=== PATIENT | female | born 1965 | race Caucasian/White ===

== ENCOUNTER 2019-12-22 21:51 | Inpatient (IN) | payer OTHER, MEDICAID, SELFPAY ==
[~2019-12-22] VITALS: Ht 175.3 cm; Wt 83.9 kg
[2019-12-22 21:55] VITALS: BP_SYST 116
[2019-12-22 21:56] VITALS: BP_SYST 116
[2019-12-22] MEDS ORDERED: ONDANSETRON HCL 4 MG/2 ML VIAL IVP ONE (22:30)
[2019-12-22] MEDS ORDERED: MORPHINE 4 MG/ML INJ. SYRINGE IVP ONE (22:30)
[2019-12-22 23:56] LABS: BASOPHILS # (AUTO) 0.1 K/uL (0.0-0.2); EOSINOPHILS # (AUTO) 0.3 K/uL (0.0-0.4); EOSINOPHILS % (AUTO) 6.3 % (0.0-4.0); HEMATOCRIT 39.9 % (36-48); HEMOGLOBIN 13.2 g/dL (12.0-16.0); LYMPHOCYTES # (AUTO) 2.1 K/uL (1.0-5.5); LYMPHOCYTES % (AUTO) 39.3 % (20.5-51.5); MEAN CORPUSCULAR HEMOGLOBIN 29 pg (27-31); MEAN CORPUSCULAR HGB CONC 33 % (32-36); MEAN CORPUSCULAR VOLUME 87 fL (79.0-98.0); MONOCYTES # (AUTO) 0.5 K/uL (0.0-1.0); MONOCYTES % (AUTO) 10.1 % (1.7-9.3); NEUTROPHILS # (AUTO) 2.3 K/uL (1.8-7.7); NEUTROPHILS % (AUTO) 43.3 % (40.0-70.0); PLATELET COUNT (AUTO) 275 K/uL (130-430); RED BLOOD CELL COUNT(AUTO) 4.58 MIL/uL (4.2-6.2); RED CELL DISTRIBUTION WIDTH 13.3 % (9.0-15.0); WHITE BLOOD COUNT (AUTO) 5.4 K/uL (4.8-10.8)
[2019-12-23 00:09] LABS: CALCIUM 8.4 mg/dL (8.4-11.0); CREATININE 0.92 mg/dL (0.55-1.30)
[2019-12-23 00:15] LABS: ALBUMIN 3.5 g/dL (3.4-4.8); TOTAL BILIRUBIN 0.1 mg/dL (0.0-1.0)
[2019-12-23 00:33] LABS: INR 1.1 (0.8-1.2); PROTHROMBIN TIME 10.9 SECS (9.5-12.5)
[2019-12-23 00:59] LABS: BILIRUBIN,URINE NEGATIVE (NEGATIVE); BLOOD, URINE NEGATIVE (NEGATIVE); CLARITY/URINE CLEAR (CLEAR); COLOR,URINE YELLOW (YELLOW); GLUCOSE,URINE NEGATIVE (NEGATIVE); KETONES,URINE NEGATIVE (NEGATIVE); LEUKOCYTE ESTERASE ,URINE NEGATIVE (NEGATIVE); NITRITE, URINE NEGATIVE (NEGATIVE); PH,URINE 6.5 (5.0-8.0); PROTEIN URINE NEGATIVE (NEGATIVE); UROBILINOGEN,URINE 0.2 (0.2-1.0)
[2019-12-23] MEDS ORDERED: SENN8.6T19 PO (01:37)
[2019-12-23] MEDS ORDERED: POLY17PO4 PO (01:37)
[2019-12-23] MEDS ORDERED: ASCO500T20 PO (01:37)
[2019-12-23] MEDS ORDERED: ACET-2165 PO (01:37)
[2019-12-23] MEDS ORDERED: FAMO-132 PO (01:37)
[2019-12-23] MEDS ORDERED: DIPH25CA83 PO ×2 (01:37)
[2019-12-23] MEDS ORDERED: BISA10SU61 RC (01:37)
[2019-12-23] MEDS ORDERED: PRO20 PO (01:37)
[2019-12-23] MEDS ORDERED: METO-290 PO (01:37)
[2019-12-23] MEDS ORDERED: DIVA500T4 PO (01:37)
[2019-12-23] MEDS ORDERED: LACT10SO6 PO (01:37)
[2019-12-23] MEDS ORDERED: HYDR-4274 PO (01:37)
[2019-12-23] MEDS ORDERED: FLEETMO RC (01:37)
[2019-12-23] MEDS ORDERED: MOM PO (01:37)
[2019-12-23] MEDS ORDERED: LOVI40 SQ (01:37)
[2019-12-23] MEDS ORDERED: DOCU-144 PO (01:37)
[2019-12-23] MEDS ORDERED: ONDA4TAB5 PO (01:37)
[2019-12-23] MEDS ORDERED: SER100 PO (01:37)
[2019-12-23] MEDS ORDERED: MULT-1117 PO (01:37)
[2019-12-23] MEDS ORDERED: MELA3TAB64 PO (01:37)
[2019-12-23] MEDS ORDERED: CIPR-211 PO (01:37)
[2019-12-23 03:24] VITALS: BP_SYST 115
[2019-12-23] MEDS ORDERED: ONDANSETRON 4 MG ODT TAB PO PRN (04:00)
[2019-12-23] MEDS ORDERED: MINERAL OIL 133 ML ENEMA RC PRN (04:00)
[2019-12-23] MEDS ORDERED: MILK OF MAGNESIA 30 ML UDC PO PRN (04:00)
[2019-12-23] MEDS ORDERED: ACETAMINOPHEN 325 MG TABLET PO PRN (04:00)
[2019-12-23] MEDS ORDERED: MELATONIN 3 MG TABLET PO PRN (04:00)
[2019-12-23] MEDS ORDERED: DIPHENHYDRAMINE HCL 25 MG CAPSULE PO PRN (04:00)
[2019-12-23] MEDS ORDERED: METOCLOPRAMIDE HCL 10 MG TABLET PO PRN (04:00)
[2019-12-23] MEDS ORDERED: POLYETHYLENE GLYCOL 3350, 17 GM/ POWD.PACK PO PRN (04:00)
[2019-12-23] MEDS ORDERED: ACETAMINOPHEN 325 MG TABLET PO SCH (04:00)
[2019-12-23] MEDS ORDERED: LEVOFLOXACIN 500 MG/D5W 100 ML IV SCH (05:00)
[2019-12-23] MEDS: MORPHINE 2 MG/ML INJ. SYRINGE IVP PRN ×3 (06:54→20:09)
[2019-12-23] MEDS: ASCORBIC ACID 500 MG TABLET PO SCH ×2 (08:47→20:09)
[2019-12-23] MEDS: SENNOSIDES 8.6 MG TABLET PO SCH ×2 (08:47→20:09)
[2019-12-23] MEDS: FLUoxetine HCL 20 MG CAPSULE (PROzac) PO SCH (08:47)
[2019-12-23] MEDS: LACTULOSE 20 GM/30 ML UDC PO SCH ×2 (08:47→20:09)
[2019-12-23] MEDS: DOCUSATE SODIUM 100 MG CAPSULE PO SCH ×2 (08:47→20:08)
[2019-12-23] MEDS: DIVALPROEX SODIUM 500 MG TABLET( DEPAKOTE) PO SCH ×2 (08:47→20:08)
[2019-12-23] MEDS: MULTIVITAMINS TAB 1 TABLET PO SCH (08:47)
[2019-12-23] MEDS: FAMOTIDINE 20 MG TABLET PO SCH ×2 (08:47→20:09)
[2019-12-23] MEDS: BISACODYL 10 MG/SUPPOSITORY RC SCH (08:47)
[2019-12-23] MEDS: ENOXAPARIN SODIUM 40 MG/0.4 ML SYRINGE SQ SCH (09:00)
[2019-12-23] MEDS ORDERED: CIPROFLOXACIN HCL 500 MG TABLET PO SCH (10:00)
[2019-12-23 11:13] VITALS: BP_SYST 132
[2019-12-23 20:00] VITALS: BP_SYST 102
[2019-12-23] MEDS: QUEtiapine FUMARATE 100 MG TABLET PO SCH (20:09)
[2019-12-23] MEDS: DIPHENHYDRAMINE HCL 25 MG CAPSULE PO PRN (23:18)
[2019-12-24] VITALS: BP_SYST 118
[2019-12-24] MEDS: MORPHINE 2 MG/ML INJ. SYRINGE IVP PRN ×3 (07:35→18:47)
[2019-12-24 08:20] VITALS: BP_SYST 96
[2019-12-24] MEDS: BISACODYL 10 MG/SUPPOSITORY RC SCH (09:00)
[2019-12-24] MEDS: LACTULOSE 20 GM/30 ML UDC PO SCH ×2 (09:00→21:00)
[2019-12-24] MEDS: LEVOFLOXACIN 500 MG/D5W 100 ML IV SCH (09:48)
[2019-12-24] MEDS: ENOXAPARIN SODIUM 40 MG/0.4 ML SYRINGE SQ SCH (09:49)
[2019-12-24] MEDS: ASCORBIC ACID 500 MG TABLET PO SCH ×2 (09:50→21:45)
[2019-12-24] MEDS: MULTIVITAMINS TAB 1 TABLET PO SCH (09:51)
[2019-12-24] MEDS: FAMOTIDINE 20 MG TABLET PO SCH ×2 (09:51→21:44)
[2019-12-24] MEDS: FLUoxetine HCL 20 MG CAPSULE (PROzac) PO SCH (09:51)
[2019-12-24] MEDS: DIVALPROEX SODIUM 500 MG TABLET( DEPAKOTE) PO SCH ×2 (09:52→21:45)
[2019-12-24] MEDS: DOCUSATE SODIUM 100 MG CAPSULE PO SCH ×2 (09:58→21:00)
[2019-12-24] MEDS: SENNOSIDES 8.6 MG TABLET PO SCH ×2 (09:58→21:00)
[2019-12-24 12:20] VITALS: BP_SYST 123
[2019-12-24 16:20] VITALS: BP_SYST 136
[2019-12-24 20:45] VITALS: BP_SYST 105
[2019-12-24] MEDS: QUEtiapine FUMARATE 100 MG TABLET PO SCH (21:44)
[2019-12-25 00:15] VITALS: BP_SYST 114
[2019-12-25] MEDS: MORPHINE 2 MG/ML INJ. SYRINGE IVP PRN ×5 (02:51→23:21)
[2019-12-25 08:00] VITALS: BP_SYST 109
[2019-12-25] MEDS: LACTULOSE 20 GM/30 ML UDC PO SCH ×2 (09:00→21:00)
[2019-12-25] MEDS: SENNOSIDES 8.6 MG TABLET PO SCH ×2 (09:00→21:00)
[2019-12-25] MEDS: BISACODYL 10 MG/SUPPOSITORY RC SCH (09:00)
[2019-12-25] MEDS: LEVOFLOXACIN 500 MG/D5W 100 ML IV SCH (10:25)
[2019-12-25] MEDS: DOCUSATE SODIUM 100 MG CAPSULE PO SCH ×2 (10:25→21:33)
[2019-12-25] MEDS: DIVALPROEX SODIUM 500 MG TABLET( DEPAKOTE) PO SCH ×2 (10:25→21:00)
[2019-12-25] MEDS: MULTIVITAMINS TAB 1 TABLET PO SCH (10:26)
[2019-12-25] MEDS: FAMOTIDINE 20 MG TABLET PO SCH ×2 (10:26→21:33)
[2019-12-25] MEDS: FLUoxetine HCL 20 MG CAPSULE (PROzac) PO SCH (10:26)
[2019-12-25] MEDS: ASCORBIC ACID 500 MG TABLET PO SCH ×2 (10:26→21:34)
[2019-12-25] MEDS: ENOXAPARIN SODIUM 40 MG/0.4 ML SYRINGE SQ SCH (10:27)
[2019-12-25 12:00] VITALS: BP_SYST 102
[2019-12-25] MEDS: HYDROcodone/ACETAMIN 10-325 MG TAB PO PRN (17:11)
[2019-12-25 20:30] VITALS: BP_SYST 103
[2019-12-25] MEDS: QUEtiapine FUMARATE 100 MG TABLET PO SCH (21:34)
[2019-12-25] MEDS: DIPHENHYDRAMINE HCL 25 MG CAPSULE PO PRN (23:21)
[2019-12-25 23:30] VITALS: BP_SYST 109
[2019-12-26] MEDS: MORPHINE 2 MG/ML INJ. SYRINGE IVP PRN ×2 (06:54→11:55)
[2019-12-26 07:45] LABS: BASOPHILS # (AUTO) 0.1 K/uL (0.0-0.2); EOSINOPHILS # (AUTO) 0.5 K/uL (0.0-0.4); EOSINOPHILS % (AUTO) 9.3 % (0.0-4.0); HEMATOCRIT 40.3 % (36-48); HEMOGLOBIN 13.4 g/dL (12.0-16.0); LYMPHOCYTES # (AUTO) 2.3 K/uL (1.0-5.5); LYMPHOCYTES % (AUTO) 40.6 % (20.5-51.5); MEAN CORPUSCULAR HEMOGLOBIN 29 pg (27-31); MEAN CORPUSCULAR HGB CONC 33 % (32-36); MEAN CORPUSCULAR VOLUME 87 fL (79.0-98.0); MONOCYTES # (AUTO) 0.6 K/uL (0.0-1.0); MONOCYTES % (AUTO) 11.2 % (1.7-9.3); NEUTROPHILS # (AUTO) 2.1 K/uL (1.8-7.7); NEUTROPHILS % (AUTO) 37.9 % (40.0-70.0); PLATELET COUNT (AUTO) 300 K/uL (130-430); RED BLOOD CELL COUNT(AUTO) 4.65 MIL/uL (4.2-6.2); RED CELL DISTRIBUTION WIDTH 13.1 % (9.0-15.0); WHITE BLOOD COUNT (AUTO) 5.6 K/uL (4.8-10.8)
[2019-12-26 07:54] LABS: ALBUMIN 3.3 g/dL (3.4-4.8); CALCIUM 8.8 mg/dL (8.4-11.0); CREATININE 0.87 mg/dL (0.55-1.30); TOTAL BILIRUBIN 0.3 mg/dL (0.0-1.0)
[2019-12-26 08:00] VITALS: BP_SYST 102
[2019-12-26] MEDS: LACTULOSE 20 GM/30 ML UDC PO SCH ×2 (09:00→22:15)
[2019-12-26] MEDS: BISACODYL 10 MG/SUPPOSITORY RC SCH (09:00)
[2019-12-26] MEDS: SENNOSIDES 8.6 MG TABLET PO SCH ×2 (09:00→22:15)
[2019-12-26] MEDS: LEVOFLOXACIN 500 MG/D5W 100 ML IV SCH (09:28)
[2019-12-26] MEDS: FAMOTIDINE 20 MG TABLET PO SCH ×2 (09:29→22:15)
[2019-12-26] MEDS: DOCUSATE SODIUM 100 MG CAPSULE PO SCH ×2 (09:29→22:15)
[2019-12-26] MEDS: ASCORBIC ACID 500 MG TABLET PO SCH ×2 (09:29→22:15)
[2019-12-26] MEDS: MULTIVITAMINS TAB 1 TABLET PO SCH (09:29)
[2019-12-26] MEDS: DIVALPROEX SODIUM 500 MG TABLET( DEPAKOTE) PO SCH ×2 (09:29→22:15)
[2019-12-26] MEDS: FLUoxetine HCL 20 MG CAPSULE (PROzac) PO SCH (09:29)
[2019-12-26] MEDS: ENOXAPARIN SODIUM 40 MG/0.4 ML SYRINGE SQ SCH (09:37)
[2019-12-26 12:00] VITALS: BP_SYST 114
[2019-12-26] MEDS ORDERED: IOHEXOL 100 ML IV ONE (13:46)
[2019-12-26 16:30] VITALS: BP_SYST 110
[2019-12-26 19:33] VITALS: BP_SYST 127
[2019-12-26 20:00] VITALS: BP_SYST 127
[2019-12-26] MEDS: DIPHENHYDRAMINE HCL 25 MG CAPSULE PO PRN (22:14)
[2019-12-26] MEDS: QUEtiapine FUMARATE 100 MG TABLET PO SCH (22:15)
[2019-12-26] MEDS: HYDROcodone/ACETAMIN 10-325 MG TAB PO PRN (23:34)
[2019-12-27 00:43] VITALS: BP_SYST 120
[2019-12-27 07:56] VITALS: BP_SYST 145
[2019-12-27] MEDS: MULTIVITAMINS TAB 1 TABLET PO SCH (08:57)
[2019-12-27] MEDS: DOCUSATE SODIUM 100 MG CAPSULE PO SCH ×2 (08:57→21:41)
[2019-12-27] MEDS: DIVALPROEX SODIUM 500 MG TABLET( DEPAKOTE) PO SCH ×2 (08:57→21:41)
[2019-12-27] MEDS: ASCORBIC ACID 500 MG TABLET PO SCH ×2 (08:57→21:42)
[2019-12-27] MEDS: FLUoxetine HCL 20 MG CAPSULE (PROzac) PO SCH (08:57)
[2019-12-27] MEDS: FAMOTIDINE 20 MG TABLET PO SCH ×2 (08:57→21:41)
[2019-12-27] MEDS: SENNOSIDES 8.6 MG TABLET PO SCH ×2 (09:00→21:00)
[2019-12-27] MEDS: LACTULOSE 20 GM/30 ML UDC PO SCH ×2 (09:00→21:42)
[2019-12-27] MEDS: BISACODYL 10 MG/SUPPOSITORY RC SCH (09:00)
[2019-12-27] MEDS: ENOXAPARIN SODIUM 40 MG/0.4 ML SYRINGE SQ SCH (09:00)
[2019-12-27] MEDS: HYDROcodone/ACETAMIN 10-325 MG TAB PO PRN (09:07)
[2019-12-27] MEDS: LEVOFLOXACIN 500 MG/D5W 100 ML IV SCH (09:28)
[2019-12-27 12:00] VITALS: BP_SYST 111
[2019-12-27 16:43] VITALS: BP_SYST 121
[2019-12-27] MEDS: MORPHINE 2 MG/ML INJ. SYRINGE IVP PRN (17:14)
[2019-12-27 20:00] VITALS: BP_SYST 134
[2019-12-27] MEDS: QUEtiapine FUMARATE 100 MG TABLET PO SCH (21:41)
[2019-12-28 01:19] VITALS: BP_SYST 105
[2019-12-28 07:45] VITALS: BP_SYST 115
[2019-12-28] MEDS: LACTULOSE 20 GM/30 ML UDC PO SCH (08:35)
[2019-12-28] MEDS: SENNOSIDES 8.6 MG TABLET PO SCH (08:35)
[2019-12-28] MEDS: BISACODYL 10 MG/SUPPOSITORY RC SCH (08:36)
[2019-12-28] MEDS: FAMOTIDINE 20 MG TABLET PO SCH (08:43)
[2019-12-28] MEDS: FLUoxetine HCL 20 MG CAPSULE (PROzac) PO SCH (08:43)
[2019-12-28] MEDS: MULTIVITAMINS TAB 1 TABLET PO SCH (08:43)
[2019-12-28] MEDS: DOCUSATE SODIUM 100 MG CAPSULE PO SCH (08:43)
[2019-12-28] MEDS: LEVOFLOXACIN 500 MG/D5W 100 ML IV SCH (08:43)
[2019-12-28] MEDS: DIVALPROEX SODIUM 500 MG TABLET( DEPAKOTE) PO SCH (08:43)
[2019-12-28] MEDS: ASCORBIC ACID 500 MG TABLET PO SCH (08:43)
[2019-12-28] MEDS: ENOXAPARIN SODIUM 40 MG/0.4 ML SYRINGE SQ SCH (08:51)
[2019-12-28 12:39] VITALS: BP_SYST 118
[2019-12-28 16:37] VITALS: BP_SYST 119
[2019-12-28 17:16] VITALS: BP_SYST 126
[2019-12-28] MEDS: HYDROcodone/ACETAMIN 10-325 MG TAB PO PRN (17:26)
== END 2019-12-28 18:08 | DRG 194 ==
LOC: SED 21:51 → SMU 12-23 00:52 → EEVIPCON 12-23 00:52 → STU 12-23 02:10
PROVIDERS: ADMIT Internal Medicine Infectious Disease; ATTEND Internal Medicine Infectious Disease
DX: J18.9 Pneumonia, unspecified organism (principal); J90 Pleural effusion, not elsewhere classified; C49.A0 Gastrointestinal stromal tumor, unspecified site; K21.9 Gastro-esophageal reflux disease without esophagitis; G62.9 Polyneuropathy, unspecified; G89.18 Other acute postprocedural pain; Z20.828 Contact with and (suspected) exposure to other viral communicable diseases; Z79.899 Other long term (current) drug therapy; F31.9 Bipolar disorder, unspecified; R13.10 Dysphagia, unspecified; M54.2 Cervicalgia; Z88.0 Allergy status to penicillin; Z88.2 Allergy status to sulfonamides; Z88.1 Allergy status to other antibiotic agents; Z79.1 Long term (current) use of non-steroidal anti-inflammatories (NSAID)
CPT/HCPCS: 36415; 70491-TC; 71045; 80053; 81003; 83605; 84484; 85025; 85610-TC; 85730-TC; 87040-TC; 87081; 87086; 93005; 96374; 96375; 99285; G0378; J1650; J1956; J2270; J2405; J7060; Q0163; Q9967; U0003-CS

== ENCOUNTER 2020-04-27 17:40 | Inpatient (IN) | payer OTHER, MEDICAID, SELFPAY ==
[~2020-04-27] VITALS: Ht 175.3 cm; Wt 73.5 kg
[~2020-04-27 17:40] MED LIST: ACET325T PO; ASCO500T20 PO; BISA10SU61 RC; CIPR-211 PO; DIPH25CA83 PO; DIVA500T4 PO; DOCU-144 PO; FAMO-132 PO; FLEETMO RC; HYDR-4274 PO; LACT10SO6 PO; LOVI40 SQ; MELA3TAB41 PO; METO-290 PO; MOM PO; MULT-1117 PO; ONDA4TAB5 PO; POLY17PO4 PO; PRO20 PO; SENN8.6T19 PO; SER100 PO
[2020-04-27 17:51] VITALS: BP_SYST 105
[2020-04-27] MEDS ORDERED: cefTRIAXone 1 GM IVPB PREMIX 50 ML IV SCH (18:15)
[2020-04-27 18:31] LABS: BLOOD, URINE NEGATIVE (NEGATIVE); CLARITY/URINE CLEAR (CLEAR); GLUCOSE,URINE NEGATIVE (NEGATIVE); KETONES,URINE TRACE (NEGATIVE); LEUKOCYTE ESTERASE ,URINE NEGATIVE (NEGATIVE); NITRITE, URINE NEGATIVE (NEGATIVE); PH,URINE 5.5 (5.0-8.0); PROTEIN URINE NEGATIVE (NEGATIVE); UROBILINOGEN,URINE 0.2 (0.2-1.0)
[2020-04-27 18:34] LABS: BILIRUBIN,URINE NEGATIVE (NEGATIVE); COLOR,URINE AMBER (YELLOW)
[2020-04-27 18:47] LABS: BASOPHILS # (AUTO) 0.1 K/uL (0.0-0.2); BASOPHILS % (AUTO) 1.2 % (0.0-2.0); EOSINOPHILS # (AUTO) 0.1 K/uL (0.0-0.4); EOSINOPHILS % (AUTO) 1.5 % (0.0-4.0); HEMATOCRIT 44.3 % (36-48); HEMOGLOBIN 14.7 g/dL (12.0-16.0); LYMPHOCYTES # (AUTO) 1.9 K/uL (1.0-5.5); LYMPHOCYTES % (AUTO) 37.9 % (20.5-51.5); MEAN CORPUSCULAR HEMOGLOBIN 28 pg (27-31); MEAN CORPUSCULAR HGB CONC 33 % (32-36); MEAN CORPUSCULAR VOLUME 86 fL (79.0-98.0); MONOCYTES # (AUTO) 0.5 K/uL (0.0-1.0); MONOCYTES % (AUTO) 9.6 % (1.7-9.3); NEUTROPHILS # (AUTO) 2.6 K/uL (1.8-7.7); NEUTROPHILS % (AUTO) 49.8 % (40.0-70.0); PLATELET COUNT (AUTO) 396 K/uL (130-430); RED BLOOD CELL COUNT(AUTO) 5.19 MIL/uL (4.2-6.2); RED CELL DISTRIBUTION WIDTH 12.8 % (9.0-15.0); WHITE BLOOD COUNT (AUTO) 5.1 K/uL (4.8-10.8)
[2020-04-27 18:52] LABS: ANION GAP 9 (5-15); CALCIUM 9.1 mg/dL (8.4-11.0); CHLORIDE 104 mmol/L (98-107); CREATININE 0.67 mg/dL (0.55-1.30); GLUCOSE 100 mg/dL (70-99); POTASSIUM 3.7 mmol/L (3.5-5.1); SODIUM SERUM 139 mmol/L (136-145); UREA NITROGEN, BLOOD 16 mg/dL (8-21)
[2020-04-27] MEDS ORDERED: ONDANSETRON HCL 4 MG/2 ML VIAL IVP ONE (19:00)
[2020-04-27 19:01] LABS: ALANINE AMINOTRANSFERASE 33 U/L (12-78); ALBUMIN 3.9 g/dL (3.4-4.8); ASPARTATE AMINOTRANSFERASE 22 U/L (10-37); TOTAL BILIRUBIN 0.3 mg/dL (0.0-1.0)
[2020-04-27 19:06] LABS: GFR AFRICAN AMERICAN 118 mL/min (>90)
[2020-04-27 19:13] LABS: BILIRUBIN,DIRECT 0.1 mg/dL (0.0-0.3)
[2020-04-27] MEDS: D5/0.45 NS 1,000 ML IV SCH (19:14)
[2020-04-27 22:25] VITALS: BP_SYST 109
[2020-04-27] MEDS ORDERED: DIPHENHYDRAMINE INJ 50 MG/ML VIAL IM PRN (23:15)
[2020-04-27] MEDS: DIPHENHYDRAMINE INJ 50 MG/ML VIAL IVP PRN (23:49)
[2020-04-27] MEDS: ONDANSETRON HCL 4 MG/2 ML VIAL IVP PRN (23:49)
[2020-04-28] MEDS: ONDANSETRON HCL 4 MG/2 ML VIAL IVP PRN ×2 (05:55→20:02)
[2020-04-28] MEDS: DIPHENHYDRAMINE INJ 50 MG/ML VIAL IVP PRN (05:55)
[2020-04-28 06:43] LABS: BASOPHILS # (AUTO) 0.1 K/uL (0.0-0.2); BASOPHILS % (AUTO) 1.2 % (0.0-2.0); EOSINOPHILS # (AUTO) 0.1 K/uL (0.0-0.4); EOSINOPHILS % (AUTO) 1.8 % (0.0-4.0); HEMATOCRIT 43.4 % (36-48); HEMOGLOBIN 14.3 g/dL (12.0-16.0); LYMPHOCYTES # (AUTO) 2.1 K/uL (1.0-5.5); LYMPHOCYTES % (AUTO) 35.9 % (20.5-51.5); MEAN CORPUSCULAR HEMOGLOBIN 28 pg (27-31); MEAN CORPUSCULAR HGB CONC 33 % (32-36); MEAN CORPUSCULAR VOLUME 86 fL (79.0-98.0); MONOCYTES # (AUTO) 0.5 K/uL (0.0-1.0); NEUTROPHILS # (AUTO) 3.1 K/uL (1.8-7.7); NEUTROPHILS % (AUTO) 53.1 % (40.0-70.0); PLATELET COUNT (AUTO) 382 K/uL (130-430); RED BLOOD CELL COUNT(AUTO) 5.05 MIL/uL (4.2-6.2); RED CELL DISTRIBUTION WIDTH 12.8 % (9.0-15.0); WHITE BLOOD COUNT (AUTO) 5.9 K/uL (4.8-10.8)
[2020-04-28 07:27] LABS: ALBUMIN 3.6 g/dL (3.4-4.8); CALCIUM 8.5 mg/dL (8.4-11.0); CREATININE 0.58 mg/dL (0.55-1.30); POTASSIUM 3.5 mmol/L (3.5-5.1); TOTAL BILIRUBIN 0.3 mg/dL (0.0-1.0)
[2020-04-28 08:45] VITALS: BP_SYST 97
[2020-04-28] MEDS: ENOXAPARIN SODIUM 40 MG/0.4 ML SYRINGE SUBCUT SCH (09:47)
[2020-04-28] MEDS: D5/0.45 NS 1,000 ML IV SCH ×2 (09:48→21:43)
[2020-04-28] MEDS ORDERED: PANTOPRAZOLE SODIUM 40 MG/VIAL (PROTONIX) IVP ONE (11:45)
[2020-04-28 12:16] VITALS: BP_SYST 137
[2020-04-28 16:40] VITALS: BP_SYST 91
[2020-04-28 19:45] VITALS: BP_SYST 101
[2020-04-28] MEDS: MORPHINE 2 MG/ML INJ. SYRINGE IVP PRN (20:01)
[2020-04-28] MEDS ORDERED: FLU VACC QS2020-21 (6 mos & up) 0.5 ML/SYRINGE I.M. PRN (20:30)
[2020-04-29] VITALS: BP_SYST 99
[2020-04-29] MEDS: ONDANSETRON HCL 4 MG/2 ML VIAL IVP PRN ×3 (03:03→22:23)
[2020-04-29] MEDS: MORPHINE 2 MG/ML INJ. SYRINGE IVP PRN ×3 (03:03→19:19)
[2020-04-29 07:54] LABS: EOSINOPHILS # (AUTO) 0.1 K/uL (0.0-0.4); EOSINOPHILS % (AUTO) 2.9 % (0.0-4.0); HEMATOCRIT 43.2 % (36-48); HEMOGLOBIN 14.4 g/dL (12.0-16.0); LYMPHOCYTES % (AUTO) 41.5 % (20.5-51.5); MEAN CORPUSCULAR HEMOGLOBIN 29 pg (27-31); MEAN CORPUSCULAR HGB CONC 33 % (32-36); MEAN CORPUSCULAR VOLUME 86 fL (79.0-98.0); MONOCYTES # (AUTO) 0.3 K/uL (0.0-1.0); MONOCYTES % (AUTO) 7.3 % (1.7-9.3); NEUTROPHILS # (AUTO) 2.2 K/uL (1.8-7.7); NEUTROPHILS % (AUTO) 47.3 % (40.0-70.0); PLATELET COUNT (AUTO) 352 K/uL (130-430); RED BLOOD CELL COUNT(AUTO) 5.01 MIL/uL (4.2-6.2); RED CELL DISTRIBUTION WIDTH 12.8 % (9.0-15.0); WHITE BLOOD COUNT (AUTO) 4.7 K/uL (4.8-10.8)
[2020-04-29 08:00] VITALS: BP_SYST 100
[2020-04-29 08:14] LABS: CALCIUM 8.8 mg/dL (8.4-11.0); CREATININE 0.61 mg/dL (0.55-1.30); POTASSIUM 3.7 mmol/L (3.5-5.1)
[2020-04-29] MEDS: ENOXAPARIN SODIUM 40 MG/0.4 ML SYRINGE SUBCUT SCH (09:51)
[2020-04-29] MEDS: PANTOPRAZOLE SODIUM 40 MG/VIAL (PROTONIX) IVP SCH (09:51)
[2020-04-29 12:00] VITALS: BP_SYST 120
[2020-04-29] MEDS: D5/0.45 NS 1,000 ML IV SCH ×2 (12:33→22:30)
[2020-04-29 17:00] VITALS: BP_SYST 119
[2020-04-29] MEDS: LEVOFLOXACIN 500 MG/D5W 100 ML IV SCH (19:00)
[2020-04-29 20:22] VITALS: BP_SYST 107
[2020-04-29] MEDS ORDERED: TEMAZEPAM 7.5 MG CAPSULE PO ONE (22:45)
[2020-04-30] MEDS: MORPHINE 2 MG/ML INJ. SYRINGE IVP PRN ×3 (04:02→23:35)
[2020-04-30 04:43] VITALS: BP_SYST 119
[2020-04-30 08:00] VITALS: BP_SYST 122
[2020-04-30] MEDS: MIDAZOLAM HCL 5 MG/5 ML VIAL ONE ×4 (08:30→08:36)
[2020-04-30] MEDS ORDERED: fentaNYL CITRATE/PF 100 MCG/2 ML AMP ONE (08:31)
[2020-04-30] MEDS ORDERED: MEPERIDINE HCL/PF 100 MG/ML AMP ONE (08:32)
[2020-04-30] MEDS: PANTOPRAZOLE SODIUM 40 MG/VIAL (PROTONIX) IVP SCH (12:21)
[2020-04-30] MEDS: ENOXAPARIN SODIUM 40 MG/0.4 ML SYRINGE SUBCUT SCH (12:21)
[2020-04-30 12:40] VITALS: BP_SYST 100
[2020-04-30] MEDS: LEVOFLOXACIN 500 MG/D5W 100 ML IV SCH (16:00)
[2020-04-30 16:15] VITALS: BP_SYST 101
[2020-04-30] MEDS: D5/0.45 NS 1,000 ML IV SCH (18:03)
[2020-04-30] MEDS: ONDANSETRON HCL 4 MG/2 ML VIAL IVP PRN (19:59)
[2020-04-30 20:00] VITALS: BP_SYST 114
[2020-05-01 00:06] VITALS: BP_SYST 101
[2020-05-01 08:00] VITALS: BP_SYST 104
[2020-05-01] MEDS: D5/0.45 NS 1,000 ML IV SCH (09:03)
[2020-05-01] MEDS: PANTOPRAZOLE SODIUM 40 MG/VIAL (PROTONIX) IVP SCH (09:08)
[2020-05-01] MEDS: MORPHINE 2 MG/ML INJ. SYRINGE IVP PRN ×2 (09:08→13:48)
[2020-05-01] MEDS: ONDANSETRON HCL 4 MG/2 ML VIAL IVP PRN ×2 (09:08→13:48)
[2020-05-01] MEDS: ENOXAPARIN SODIUM 40 MG/0.4 ML SYRINGE SUBCUT SCH (09:09)
[2020-05-01 12:48] VITALS: BP_SYST 105
[2020-05-01] MEDS: LEVOFLOXACIN 500 MG/D5W 100 ML IV SCH (16:28)
[2020-05-01 16:39] VITALS: BP_SYST 105
[2020-05-01 17:10] VITALS: BP_SYST 98
== END 2020-05-01 18:39 | DRG 391 ==
LOC: SED 17:40 → SMU 18:06
PROVIDERS: ADMIT Internal Medicine; ATTEND Internal Medicine
PROC: 0DB68ZX Excision of Stomach, Via Natural or Artificial Opening Endoscopic, Diagnostic (ICD-10-PCS; 2020-04-30)
PROC: 0DB58ZX Excision of Esophagus, Via Natural or Artificial Opening Endoscopic, Diagnostic (ICD-10-PCS; 2020-04-30)
PROC: 0DB98ZX Excision of Duodenum, Via Natural or Artificial Opening Endoscopic, Diagnostic (ICD-10-PCS; principal; 2020-04-30 08:30)
DX: K29.70 Gastritis, unspecified, without bleeding (principal); J18.9 Pneumonia, unspecified organism; K44.9 Diaphragmatic hernia without obstruction or gangrene; F31.9 Bipolar disorder, unspecified; R56.9 Unspecified convulsions; K21.9 Gastro-esophageal reflux disease without esophagitis; K29.80 Duodenitis without bleeding; I48.91 Unspecified atrial fibrillation; Z20.828 Contact with and (suspected) exposure to other viral communicable diseases; Z88.0 Allergy status to penicillin; Z88.2 Allergy status to sulfonamides; Z88.8 Allergy status to other drugs, medicaments and biological substances; Z91.041 Radiographic dye allergy status; Z80.0 Family history of malignant neoplasm of digestive organs
CPT/HCPCS: 36415; 43239; 71045; 76700-TC; 80048; 80053; 80076; 81003; 83880; 84484; 85025; 87081; 88305; 88312; 88313; 93005; 97110-GP; 97530-GP; 99285; C9113; J1200; J1650; J1956; J2175; J2250; J2270; J2405; J3010; J7030; Q9967; U0003-CS

== ENCOUNTER 2021-04-22 18:10 | Inpatient (IN) | payer OTHER, MEDICAID, SELFPAY ==
[~2021-04-22] VITALS: Ht 175.3 cm; Wt 101.7 kg
[~2021-04-22 18:10] MED LIST changes: -CIPR-211 PO; +CIPR500T5 PO
--- NOTE | 2021-04-22 19:40 | NUR ---
Admission Note Received patient via gurney from 2 watch crystal molder, EMT Joanie gave report. Patient stable. Will call for diagnosis and further orders from Dr. Ignacio. Patient resting in bed - no s/s pain or distress noted. Respirations even and unlabored - head of bed elevated. IV to be inserted. Bed locked and in lowest position. Call light within reach.
--- NOTE | 2021-04-22 20:45 | NUR ---
CALLED DR. COLLAZO REGARDING ORDERS FOR DIRECT ADMIT Orders given by phone, also orders to discontinue percocet and to continue all other medications at this time.
[2021-04-22] MEDS ORDERED: MORPHINE 2 MG/ML INJ. SYRINGE IVP PRN (21:30)
[2021-04-22] MEDS: MORPHINE 2 MG/ML INJ. SYRINGE IVP PRN (21:46)
[2021-04-22 21:56] VITALS: BP_SYST 118
[2021-04-22] MEDS ORDERED: LOPERAMIDE HCL 2 MG CAPSULE PO PRN (22:45)
[2021-04-22] MEDS ORDERED: ONDANSETRON 4 MG ODT TAB PO PRN ×2 (22:45→23:15)
[2021-04-22] MEDS ORDERED: METOCLOPRAMIDE HCL 10 MG TABLET PO PRN (22:45)
[2021-04-22] MEDS: D5/0.45 NS 1,000 ML IV SCH (23:48)
[2021-04-23] VITALS: BP_SYST 96
--- NOTE | 2021-04-23 04:13 | NUR ---
CONSULT: CONSULT CALLED FOR DR. DE LA CRUZ I SPOKE WITH HERLINDA SALAZAR CONSULT ORDERED PER DR. COLLAZO REASON: ONLY SAID CARDIO CONSULT [employer] PHONE NUMBER: [phone]
[2021-04-23 06:42] LABS: BASOPHILS % (AUTO) 1.1 % (0.0-2.0); EOSINOPHILS # (AUTO) 0.3 K/uL (0.0-0.4); EOSINOPHILS % (AUTO) 6.1 % (0.0-4.0); HEMATOCRIT 39.1 % (36-48); HEMOGLOBIN 13.2 g/dL (12.0-16.0); LYMPHOCYTES # (AUTO) 1.7 K/uL (1.0-5.5); LYMPHOCYTES % (AUTO) 41.4 % (20.5-51.5); MEAN CORPUSCULAR HEMOGLOBIN 29 pg (27-31); MEAN CORPUSCULAR HGB CONC 34 % (32-36); MEAN CORPUSCULAR VOLUME 86 fL (79.0-98.0); MONOCYTES # (AUTO) 0.6 K/uL (0.0-1.0); MONOCYTES % (AUTO) 13.3 % (1.7-9.3); NEUTROPHILS # (AUTO) 1.6 K/uL (1.8-7.7); NEUTROPHILS % (AUTO) 38.1 % (40.0-70.0); PLATELET COUNT (AUTO) 230 K/uL (130-430); RED BLOOD CELL COUNT(AUTO) 4.54 MIL/uL (4.2-6.2); RED CELL DISTRIBUTION WIDTH 13.6 % (9.0-15.0); WHITE BLOOD COUNT (AUTO) 4.2 K/uL (4.8-10.8)
--- NOTE | 2021-04-23 07:26 | NUR ---
CLOSING NOTES Patient resting in bed - no s/s pain or distress noted. Respirations even and unlabored - head of bed elevated. IV to be inserted. Bed locked and in lowest position. Call light within reach. Addendum: 04/23/21 at 0749 by Placido Brunner RN IV HAD ALREADY BEEN INSERTED DISREGARD
[2021-04-23 07:46] LABS: INR 1.3 (0.8-1.2); PROTHROMBIN TIME 13.3 SECS (9.5-12.5)
[2021-04-23 07:57] LABS: ALANINE AMINOTRANSFERASE 17 U/L (12-78); ANION GAP 8 (5-15); ASPARTATE AMINOTRANSFERASE 14 U/L (10-37); CALCIUM 8.6 mg/dL (8.4-11.0); CHLORIDE 103 mmol/L (98-107); CREATININE 0.76 mg/dL (0.55-1.30); GLUCOSE 96 mg/dL (70-99); POTASSIUM 4.2 mmol/L (3.5-5.1); SODIUM SERUM 140 mmol/L (136-145); TOTAL BILIRUBIN 0.2 mg/dL (0.0-1.0); UREA NITROGEN, BLOOD 17 mg/dL (8-21)
[2021-04-23 08:00] VITALS: BP_SYST 110
[2021-04-23 08:25] LABS: GFR AFRICAN AMERICAN 101 mL/min (>90)
[2021-04-23] MEDS: FAMOTIDINE 20 MG TABLET PO SCH ×2 (08:39→21:19)
[2021-04-23] MEDS: GABAPENTIN 300 MG CAPSULE PO SCH ×3 (08:39→21:18)
[2021-04-23] MEDS: DIVALPROEX SODIUM 500 MG TABLET( DEPAKOTE) PO SCH ×2 (08:39→21:19)
[2021-04-23] MEDS: PANTOPRAZOLE SODIUM 40 MG TAB PO SCH (08:40)
[2021-04-23] MEDS: MORPHINE 2 MG/ML INJ. SYRINGE IVP PRN ×2 (08:49→21:23)
[2021-04-23] MEDS ORDERED: FLUoxetine HCL 10 MG CAPSULE (PROzac) PO SCH (09:00)
[2021-04-23 09:02] LABS: CHOLESTEROL 184 mg/dL (<200); HDL CHOLESTEROL 38 mg/dL (>55); LDL CHOLESTEROL 116 mg/dL (<100); TRIGLYCERIDES 184 mg/dL (30-150)
[2021-04-23 09:18] LABS: ERYTHROCYTE SEDIMENTATION RATE 5 MM/HR (0-20)
--- NOTE | 2021-04-23 09:45 | NUR ---
OPENING NOTE Patient is resting in bed A&Ox 4 complains of generalized pain and discomfort, will provide PRN medication. No signs or symptoms of respiratory distress, Patient complains of pain at the IV site, will replace. Educated patient on plan of care, patient verbalized understanding. Bed is in lowest position, call light within reach, fall and aspiration precautions are in place. Will continue to monitor.
[2021-04-23 09:51] LABS: C-REACTIVE PROTEIN QUANT < 0.2 mg/dL (0-0.5)
--- NOTE | 2021-04-23 11:20 | NUR ---
RN NOTE Patient taken to radiology, in stable condition.
--- NOTE | 2021-04-23 15:30 | NUR ---
RN note Patient is able to ambulate to the restroom using the walker. Tolerating well, no complaint of pain or discomfort.
[2021-04-23 16:00] VITALS: BP_SYST 115
--- NOTE | 2021-04-23 17:42 | NUR ---
CONSULT NEUROLOGY EVALUATION NEUROPATHY ISABELLA TENA SENT A TECT MESSAGE TO DR SHEEHAN
--- NOTE | 2021-04-23 17:49 | NUR ---
CONSULT ORTHO EVALUATION OF BACK PAIN DR PIÑA [phone] DR GRIGSBY MUSIC THEORY PROFESSOR S/W CY EXCHANGE
--- NOTE | 2021-04-23 18:27 | NUR ---
Closing note Patient is resting in bed A&Ox 4 no complaint of pain and discomfort. No signs or symptoms of respiratory distress. All needs were met. Bed is in lowest position, call light within reach, fall and aspiration precautions are in place. Will endorse report to sugarcane research technician.
[2021-04-23] MEDS: D5/0.45 NS 1,000 ML IV SCH (18:45)
--- NOTE | 2021-04-23 19:05 | NUR ---
RECEIVED BEDSIDE REPORT. PT IN BED RESTING. RR EVEN AND UNLABORED ON RA. BED RAILS UPX2. PT HAS BRP AND IS AMBULATORY. CALL LIGHT WITHIN REACH. WILL CONTINUE TO MONITOR.
--- NOTE | 2021-04-23 20:00 | NUR ---
NEW IV INSERTED IN R HAND 24G. PT MEDICATED FOR PAIN. WILL CONTINUE TO MONITOR.
[2021-04-23 21:19] VITALS: BP_SYST 135
[2021-04-23] MEDS: QUEtiapine FUMARATE 25 MG TABLET PO SCH (21:19)
--- NOTE | 2021-04-24 06:02 | NUR ---
PT SLEPT THROUGH NIGHT. PT DID NOT CO PAIN THROUGH THE NIGHT. ALL NEEDS MEET AT THIS TIME.
[2021-04-24 06:30] VITALS: BP_SYST 95
[2021-04-24 06:59] LABS: BASOPHILS % (AUTO) 0.9 % (0.0-2.0); EOSINOPHILS # (AUTO) 0.3 K/uL (0.0-0.4); EOSINOPHILS % (AUTO) 6.3 % (0.0-4.0); HEMATOCRIT 40.1 % (36-48); HEMOGLOBIN 13.5 g/dL (12.0-16.0); LYMPHOCYTES # (AUTO) 1.8 K/uL (1.0-5.5); LYMPHOCYTES % (AUTO) 44.4 % (20.5-51.5); MEAN CORPUSCULAR HEMOGLOBIN 29 pg (27-31); MEAN CORPUSCULAR HGB CONC 34 % (32-36); MEAN CORPUSCULAR VOLUME 86 fL (79.0-98.0); MONOCYTES # (AUTO) 0.6 K/uL (0.0-1.0); MONOCYTES % (AUTO) 14.2 % (1.7-9.3); NEUTROPHILS # (AUTO) 1.4 K/uL (1.8-7.7); NEUTROPHILS % (AUTO) 34.2 % (40.0-70.0); PLATELET COUNT (AUTO) 250 K/uL (130-430); RED BLOOD CELL COUNT(AUTO) 4.67 MIL/uL (4.2-6.2); RED CELL DISTRIBUTION WIDTH 13.4 % (9.0-15.0)
[2021-04-24 07:16] LABS: CALCIUM 8.8 mg/dL (8.4-11.0); CREATININE 0.81 mg/dL (0.55-1.30); POTASSIUM 4.1 mmol/L (3.5-5.1)
--- NOTE | 2021-04-24 07:23 | NUR ---
endorse care to day shift nurse
[2021-04-24 08:00] VITALS: BP_SYST 104
--- NOTE | 2021-04-24 08:00 | NUR ---
Opening Note Patient is resting in bed A&Ox 4 no complaint of pain or discomfort, will provide PRN medication. No signs or symptoms of respiratory distress, Iv is patent no signs or symptoms of infiltration. Educated patient on plan of care, patient verbalized understanding. Bed is in lowest position, call light within reach, fall and aspiration precautions are in place. Will continue to monitor.
[2021-04-24] MEDS: FLUoxetine HCL 10 MG CAPSULE (PROzac) PO SCH (08:30)
[2021-04-24] MEDS: GABAPENTIN 300 MG CAPSULE PO SCH ×2 (08:30→22:01)
[2021-04-24] MEDS: DIVALPROEX SODIUM 500 MG TABLET( DEPAKOTE) PO SCH ×2 (08:30→22:01)
[2021-04-24] MEDS: FAMOTIDINE 20 MG TABLET PO SCH ×2 (08:30→22:02)
[2021-04-24] MEDS: PANTOPRAZOLE SODIUM 40 MG TAB PO SCH (08:30)
--- NOTE | 2021-04-24 10:30 | NUR ---
RN NOTE Spoke with regarding patient low blood pressure, new orders received and placed.
[2021-04-24] MEDS: MORPHINE 2 MG/ML INJ. SYRINGE IVP PRN ×2 (10:48→22:05)
[2021-04-24] MEDS ORDERED: ALBUMIN HUMAN 25% 200 ML IV ONE (11:00)
[2021-04-24] MEDS: D5/0.45 NS 1,000 ML IV SCH (14:45)
--- NOTE | 2021-04-24 15:10 | NUR ---
Physical Therapy evaluation has been attempted 3 times, however, the patient was unavailable. Will attempt tomorrow morning.
[2021-04-24 16:00] VITALS: BP_SYST 111
--- NOTE | 2021-04-24 17:05 | NUR ---
RN note Patient ambulated with PT, tolerated well. Blood pressure increased with albumin dosage current BP is 122/78.
--- NOTE | 2021-04-24 18:38 | NUR ---
Closing Note Patient is resting in bed A&Ox 4 no complaint of pain or discomfort, will provide PRN medication. No signs or symptoms of respiratory distress, Iv is patent no signs or symptoms of infiltration. All needs were met. Bed is in lowest position, call light within reach, fall and aspiration precautions are in place. Will endorse report to director of early childhood.
--- NOTE | 2021-04-24 19:00 | NUR ---
RECEIVED BEDSIDE REPORT. PT IN BED RESTING. PT AOX4 ABLE TO MAKE NEEDS KNOWN. RR EVEN AND UNLABORED ON RA. IV IN R HAND CDI WITH NO REDNESS OR SWELLING. CALL LIGHT WITHIN REACH. BED LOCKED IN LOWEST POSITION. WILL CONTINUE TO MONITOR.
[2021-04-24 21:40] VITALS: BP_SYST 124
[2021-04-24] MEDS: QUEtiapine FUMARATE 25 MG TABLET PO SCH (22:02)
[2021-04-25] VITALS: BP_SYST 100
[2021-04-25 08:00] VITALS: BP_SYST 108
[2021-04-25] MEDS: PANTOPRAZOLE SODIUM 40 MG TAB PO SCH (09:40)
[2021-04-25] MEDS: FLUoxetine HCL 10 MG CAPSULE (PROzac) PO SCH (09:40)
[2021-04-25] MEDS: GABAPENTIN 300 MG CAPSULE PO SCH (09:40)
[2021-04-25] MEDS: FAMOTIDINE 20 MG TABLET PO SCH (09:41)
[2021-04-25] MEDS: DIVALPROEX SODIUM 500 MG TABLET( DEPAKOTE) PO SCH (09:41)
--- NOTE | 2021-04-25 09:48 | NUR ---
Patient accepted at the [place] room 20B-Number for report [phone]. [facility] to transport at 2 PM dc disposition 03
[2021-04-25] MEDS: MORPHINE 2 MG/ML INJ. SYRINGE IVP PRN (10:24)
[2021-04-25] MEDS: D5/0.45 NS 1,000 ML IV SCH (10:26)
[2021-04-25] MEDS ORDERED: TORBREX OP (11:32)
[2021-04-25 12:00] VITALS: BP_SYST 112
[2021-04-25] MEDS ORDERED: PEG 400/HYPROMELLOSE/GLYCERIN 15 ML DROPS OP SCH (13:00)
[2021-04-25 13:12] VITALS: BP_SYST 112
--- NOTE | 2021-04-25 13:48 | NUR ---
Nutrition Note Pt was due for initial Nutrition Assessment today. Pt is pending D/C to SNF per EMR review. Nutrition Assessment deferred.
--- NOTE | 2021-04-25 14:30 | NUR ---
PATIENT TRANSFERED TO [facility] BY [facility] UN[facility], PATIENT AMBULATED WITH 4 WHEEL WALKER TO [facility], DISCHARGE PACKET SIGNED CHARTED AND COPY WITH PATIENT, IV REMOVED, ALL BELONGINGS WITH PATIENT, REPORT GIVEN EARLIER TO DASHAWN AT [facility] OVER THE PHONE, GAVE REPORT TO TRANSPORT, TOOK WALKER WITH PATIENT, LEFT EYE IS REDDENED BUT NOTIFIED DASHAWN THAT DR COLLAZO ORDERED TO HAVE HER START TOBRADEX EYE DROPS THER BID FOR 5 DAYS. ANSWERED ALL QUESTIONS, EDUCATED PATIENT TO FOLLOW UP WITH A NEURO SURGEON OUTPATIENT AND HER PRIMARY CARE PROVIDER WITHIN 7 DAYS.
== END 2021-04-25 14:20 | DRG 74 ==
LOC: STU 20:11 → SMU 21:12
PROVIDERS: ADMIT Internal Medicine; ATTEND Internal Medicine
DX: G62.9 Polyneuropathy, unspecified (principal); E44.0 Moderate protein-calorie malnutrition; F31.9 Bipolar disorder, unspecified; I48.91 Unspecified atrial fibrillation; M47.812 Spondylosis without myelopathy or radiculopathy, cervical region; Z20.822 Contact with and (suspected) exposure to COVID-19; K21.9 Gastro-esophageal reflux disease without esophagitis; M48.02 Spinal stenosis, cervical region; E66.9 Obesity, unspecified; Z87.01 Personal history of pneumonia (recurrent); Z87.891 Personal history of nicotine dependence; Z88.0 Allergy status to penicillin; Z88.2 Allergy status to sulfonamides; Z88.1 Allergy status to other antibiotic agents; Z91.041 Radiographic dye allergy status; Z68.33 Body mass index [BMI] 33.0-33.9, adult
CPT/HCPCS: 36415; 71045; 72141; 72148; 80048; 80053; 80061; 85025; 85379; 85610-TC; 85651-TC; 85730-TC; 86140; 93005; 93306; 97163-GP; 97530-GP; J2270